=== PATIENT | female | born 1980 | race African-American/Black ===

== ENCOUNTER 2017-03-16 13:06 | Emergency (ER) | payer MEDICAID, OTHER ==
[~2017-03-16] VITALS: Ht 157.5 cm; Wt 96.2 kg
[~2017-03-16 13:06] MED LIST: MULT-1468 PO; PENI500T20 PO
[2017-03-16 14:11] VITALS: BP 147/99
--- NOTE | 2017-03-16 14:15 | NUR ---
PT AA&OX4 WITH EVEN AND STEADY GAIT AT THIS TIME; PT TO LOBBY AWAITING OPEN BED.
--- NOTE | 2017-03-16 17:32 | NUR ---
PATIENT CALLED FROM LOBBY AT THIS TIME FOR XRAY AND NO ANSWER PATIENT IS CONSIDERED LWBS.
== END 2017-03-16 17:32 | disposition left against medical advice (07) ==
LOC: MED 13:06
DX: R05 Cough (principal); Z53.21 Procedure and treatment not carried out due to patient leaving prior to being seen by health care provider

== ENCOUNTER 2017-03-17 12:03 | Emergency (ER) | payer OTHER ==
[~2017-03-17] VITALS: Ht 157.5 cm; Wt 96.2 kg
[2017-03-17 12:18] VITALS: BP 153/105
--- NOTE | 2017-03-17 14:39 | NUR ---
PT TAKEN TO OVERFLOW 1.
--- NOTE | 2017-03-17 15:19 | NUR ---
PATIENT PRESENTS TO ED FOR MEDICATION REFILL FOR ALBUTEROL INHALOR;HX OF ASTHMA . PT STATES SHE HAS COUGH. DENIES N/V/D; SKIN IS PINK/WARM/DRY; AAOX4 WITH EVEN AND STEADY GAIT; HR EVEN AND REGULAR; PT DENIES ANY FEVER, CP, SOB AT THIS TIME; PATIENT STATES PAIN OF 0/10 AT THIS TIME;PATIENT POSITIONED FOR COMFORT; ER MD MADE AWARE OF PT STATUS.
[2017-03-17 15:32] VITALS: BP 151/97
--- NOTE | 2017-03-17 15:32 | NUR ---
Patient discharged with v/s stable. Written and verbal after care instructions given and explained. Patient alert, oriented and verbalized understanding of instructions. Ambulatory with steady gait. All questions addressed prior to discharge. ID band removed. Patient advised to follow up with PMD. Rx of PREDNISONE AND ALBUTEROL given. Patient educated on indication of medication including possible reaction and side effects. Opportunity to ask questions provided and answered.
== END 2017-03-17 15:32 | disposition home or self-care (01) ==
LOC: MED 12:03
DX: J02.9 Acute pharyngitis, unspecified (principal); K21.9 Gastro-esophageal reflux disease without esophagitis; Z88.6 Allergy status to analgesic agent; Z88.0 Allergy status to penicillin
CPT/HCPCS: 99283

== ENCOUNTER 2018-04-30 21:18 | Emergency (ER) | payer MEDICAID ==
[~2018-04-30] VITALS: Ht 157.5 cm; Wt 81.6 kg
--- NOTE | 2018-04-30 21:24 | NUR ---
PT TAKEN TO BED 11
[2018-04-30 21:25] VITALS: BP 138/77
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
--- NOTE | 2018-04-30 22:09 | NUR ---
PT RETURN FROM RADIOLOGY
--- NOTE | 2018-04-30 22:40 | NUR ---
PT LAYING IN BED, RR EVEN AND UNLABORED. VSS. REPORTS IMPROVEMENT IN PAIN RELIEF. ALL NEEDS MET.
[2018-04-30 22:45] VITALS: BP 124/81
--- NOTE | 2018-04-30 22:45 | NUR ---
Patient discharged with v/s stable. Written and verbal after care instructions given and explained by Dr. Ulloa. Patient alert, oriented and verbalized understanding of instructions. Ambulatory with steady gait. All questions addressed prior to discharge by Dr. Ulloa. ID band removed. Patient advised to follow up with PMD. Rx of NAPROSYN given. Patient educated on indication of medication including possible reaction and side effects by Dr. Ulloa. Opportunity to ask questions provided and answered by Dr. Ulloa.
== END 2018-04-30 22:45 | disposition home or self-care (01) ==
LOC: MED 21:18
DX: S13.4XXA Sprain of ligaments of cervical spine, initial encounter (principal); J45.909 Unspecified asthma, uncomplicated; F12.90 Cannabis use, unspecified, uncomplicated; K21.9 Gastro-esophageal reflux disease without esophagitis; Z98.890 Other specified postprocedural states; Z88.6 Allergy status to analgesic agent; Z88.0 Allergy status to penicillin; Z88.8 Allergy status to other drugs, medicaments and biological substances; Z79.2 Long term (current) use of antibiotics; Z79.899 Other long term (current) drug therapy; V89.2XXA Person injured in unspecified motor-vehicle accident, traffic, initial encounter; Y93.89 Activity, other specified; Y92.89 Other specified places as the place of occurrence of the external cause; Y99.8 Other external cause status
CPT/HCPCS: 72050; 99283

== ENCOUNTER 2018-10-28 18:42 | Emergency (ER) | payer MEDICAID ==
[~2018-10-28] VITALS: Ht 157.5 cm; Wt 90.3 kg
[2018-10-28 18:58] VITALS: BP 125/76
--- NOTE | 2018-10-28 19:07 | NUR ---
PT IS REFUSING ACCUCHECK, SHE STATES SHE IS NOT DIABETIC AND DOES NOT WANT TO BE "POKED". I EXPLAINED TO PT I WOULD LIKE TO CHECK HER FSBS TO ENSURE HER GLUCOSE LEVELS ARE NORMAL TO R/O HYPOGLYCEMIA A REASON FOR THE FALL. PT CONTINUED TO REFUSE
--- NOTE | 2018-10-28 19:10 | NUR ---
Mary young in [facility] - 10/28/18 at 1910 by MEDKALLI PT AMBULATED TO BED 05.
--- NOTE | 2018-10-28 19:10 | NUR ---
PT AMBULATED TO BED 01.
[2018-10-28] MEDS ORDERED: NACL 0.9% 1,000 ML IV ONE (19:25)
[2018-10-28] MEDS ORDERED: ACETAMINOPHEN EXTRA STRENGTH 500 MG TAB PO ONE (19:30)
[2018-10-28 20:03] VITALS: BP 125/76
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
--- NOTE | 2018-10-28 21:15 | NUR ---
pT COMFORTABLE, WAITING FOR XRAY, WILL CONTINUE TO MONITER.
--- NOTE | 2018-10-28 21:29 | NUR ---
Patient discharged with v/s stable. Written and verbal after care instructions given and explained. Patient alert, oriented and verbalized understanding of instructions. Ambulatory with steady gait. All questions addressed prior to discharge. ID band removed. Patient advised to follow up with PMD. Rx of NAPROCYN given. Patient educated on indication of medication including possible reaction and side effects. Opportunity to ask questions provided and answered.
== END 2018-10-28 21:29 | disposition home or self-care (01) ==
LOC: MED 18:42
DX: S80.212A Abrasion, left knee, initial encounter (principal); J45.909 Unspecified asthma, uncomplicated; K21.9 Gastro-esophageal reflux disease without esophagitis; Z88.0 Allergy status to penicillin; Z88.6 Allergy status to analgesic agent; Z88.8 Allergy status to other drugs, medicaments and biological substances; X58.XXXA Exposure to other specified factors, initial encounter; Y93.89 Activity, other specified; Y92.89 Other specified places as the place of occurrence of the external cause; Y99.8 Other external cause status
CPT/HCPCS: 73562; 99283; Q0092

== ENCOUNTER 2018-11-30 18:30 | Emergency (ER) | payer MEDICAID ==
[~2018-11-30] VITALS: Ht 157.5 cm; Wt 83.9 kg
[2018-11-30 19:08] VITALS: BP_SYST 132; BP_SYST 139; BP_DIAS 76; BP_DIAS 88
--- NOTE | 2018-11-30 19:12 | NUR ---
[facility] AWAITING AVAILABLE BED.
--- NOTE | 2018-11-30 19:26 | NUR ---
PT AMBULATED TO CHAIR B.
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
--- NOTE | 2018-11-30 20:02 | NUR ---
SIZED CRUTCHES TO PATIENT
--- NOTE | 2018-11-30 20:03 | NUR ---
EMT PROVIDING CRUTCH TRAINING AT CHAIR.
[2018-11-30 20:07] VITALS: BP 139/76
--- NOTE | 2018-11-30 20:07 | NUR ---
Patient discharged with v/s stable. Written and verbal after care instructions given and explained. Patient alert, oriented and verbalized understanding of instructions. Ambulatory with steady gait. All questions addressed prior to discharge. ID band removed. Patient advised to follow up with PMD. Rx of Extra Strength Tylenol given. Patient educated on indication of medication including possible reaction and side effects. Opportunity to ask questions provided and answered.
== END 2018-11-30 20:07 | disposition home or self-care (01) ==
LOC: MED 18:30
DX: M25.561 Pain in right knee (principal); G89.29 Other chronic pain; J45.909 Unspecified asthma, uncomplicated; K21.9 Gastro-esophageal reflux disease without esophagitis; Z79.899 Other long term (current) drug therapy; Z79.2 Long term (current) use of antibiotics; Z88.6 Allergy status to analgesic agent; Z88.8 Allergy status to other drugs, medicaments and biological substances; Z88.0 Allergy status to penicillin
CPT/HCPCS: 99283

== ENCOUNTER 2019-03-08 12:01 | Emergency (ER) | payer MEDICAID ==
[~2019-03-08] VITALS: Ht 157.5 cm; Wt 93.4 kg
[2019-03-08 12:12] VITALS: BP 135/77
--- NOTE | 2019-03-08 12:15 | NUR ---
PT AMBULATED TO BED 1.
--- NOTE | 2019-03-08 12:29 | NUR ---
38/F presents to ED with complaints of right knee pain and right ankle pain which patient reports is chronic. Pt denies any injury or trauma. Pt reports having an 8/10 pain, aching, continuous. Pt has full ROM, cms intact. No signs of swelling or deformity. Pt ambulatory with steady gait.
[2019-03-08] MEDS ORDERED: HYDROcodone/APAP 5/325 MG 1 TAB TAB PO ONE (12:45)
--- NOTE | 2019-03-08 13:14 | NUR ---
REPORTS PAIN AT 5/10 AT THIS TIME. PT AGREES WITH PLAN TO DISCHARGE.
[2019-03-08 13:20] VITALS: BP 135/77
--- NOTE | 2019-03-08 13:20 | NUR ---
Patient discharged with v/s stable. Written and verbal after care instructions given and explained. Patient verbalized understanding. Ambulatory with steady gait. All questions addressed prior to discharge. Advised to follow up with PMD.
== END 2019-03-08 13:20 | disposition home or self-care (01) ==
LOC: MED 12:01
DX: M25.561 Pain in right knee (principal); M79.671 Pain in right foot; G89.29 Other chronic pain; J45.909 Unspecified asthma, uncomplicated; K21.9 Gastro-esophageal reflux disease without esophagitis; Z79.899 Other long term (current) drug therapy; Z88.0 Allergy status to penicillin; Z88.8 Allergy status to other drugs, medicaments and biological substances
CPT/HCPCS: 99282

== ENCOUNTER 2019-04-27 09:01 | Emergency (ER) | payer MEDICAID | END 2019-04-27 10:25 | disposition home or self-care (01) | LOC: MED 09:01 | DX: G89.29 Other chronic pain (principal); M25.571 Pain in right ankle and joints of right foot; M25.561 Pain in right knee; M54.2 Cervicalgia; J45.909 Unspecified asthma, uncomplicated; K21.9 Gastro-esophageal reflux disease without esophagitis; M51.06 Intervertebral disc disorders with myelopathy, lumbar region; Z88.0 Allergy status to penicillin; Z88.8 Allergy status to other drugs, medicaments and biological substances; Z88.6 Allergy status to analgesic agent | CPT/HCPCS: 99281 ==

== ENCOUNTER 2019-04-28 14:59 | Emergency (ER) | payer MEDICAID ==
[~2019-04-28] VITALS: Ht 157.5 cm; Wt 90.7 kg
[2019-04-28 15:05] VITALS: BP 130/73
--- NOTE | 2019-04-28 15:16 | NUR ---
PT C/O NECK PAIN SINCE YESTERDAY. DENIES TRAUMA/INJURY. TOOK NORCO AND TYLENOL W/O ANY RELIEF. PATIENT STATES PAIN OF 10/10 AT THIS TIME; VSS; PATIENT POSITIONED FOR COMFORT; HOB ELEVATED; BEDRAILS UP X1; BED DOWN. ER MD MADE AWARE OF PT STATUS.
[2019-04-28] MEDS: DEXAMETHASONE 4 MG/ML VIAL PO ONE (16:02)
[2019-04-28] MEDS: MORPHINE SULFATE 10 MG/ML VIAL IVP ONE (16:04)
[2019-04-28] MEDS: ONDANSETRON 4 MG/2 ML VIAL IVP ONE (16:06)
[2019-04-28] MEDS: NACL 0.9% 1,000 ML IV ONE (16:06)
--- NOTE | 2019-04-28 16:35 | NUR ---
PT AMBULATED TO THE BATHROOM W/ STEADY GAIT.
--- NOTE | 2019-04-28 16:50 | NUR ---
PT IS RESTING IN THE BED WITH VSS.
[2019-04-28 17:03] VITALS: BP 115/78
--- NOTE | 2019-04-28 17:03 | NUR ---
Patient discharged with v/s stable. Written and verbal after care instructions given and explained. Patient alert, oriented and verbalized understanding of instructions. Ambulatory with steady gait. All questions addressed prior to discharge. ID band removed. Patient advised to follow up with PMD. Rx of Grampian and Decadron given. Patient educated on indication of medication including possible reaction and side effects. Opportunity to ask questions provided and answered.
== END 2019-04-28 17:03 | disposition home or self-care (01) ==
LOC: MED 14:59
DX: G89.21 Chronic pain due to trauma (principal); M54.2 Cervicalgia; M79.602 Pain in left arm; J45.909 Unspecified asthma, uncomplicated; K21.9 Gastro-esophageal reflux disease without esophagitis; Z79.899 Other long term (current) drug therapy; Z88.0 Allergy status to penicillin; Z88.6 Allergy status to analgesic agent; Z88.8 Allergy status to other drugs, medicaments and biological substances; Z98.890 Other specified postprocedural states
CPT/HCPCS: 96374; 96375; 99284; J1100; J2270; J2405; J7030

== ENCOUNTER 2019-05-04 19:15 | Emergency (ER) | payer MEDICAID ==
[~2019-05-04] VITALS: Ht 160 cm; Wt 90.8 kg
[2019-05-04 19:29] VITALS: BP 137/83
--- NOTE | 2019-05-04 19:36 | NUR ---
URINE CUP HANDED PT FOR SAMPLE; PT STATED ONLY NEEDS PAIN MEDICINE SO NO NEED FOR URINE SAMPLE---I INFORMED PT THEY MAY ASK IF CT OR SOME OTHER SIMILAR DIAGNOSTIC NEEDED.
--- NOTE | 2019-05-04 19:41 | NUR ---
PT AMBULATED TO [facility]
--- NOTE | 2019-05-04 19:47 | NUR ---
38/F ambulatory with steady gait to ED, c/o exacerbation of chronic pain on posterior neck, R knee and R ankle. Pt stated that her 5-pill Rx [place] ran out and her appointment with MD is tomorrow. Denies trauma/fall/injury. Pt awake and alert, skin normal color warm and dry, rr even and unlabored. Hx asthma, chronic pain
[2019-05-04] MEDS ORDERED: HYDROcodone/APAP 5/325 MG 1 TAB TAB PO ONE (20:25)
[2019-05-04 21:14] VITALS: BP 137/83
--- NOTE | 2019-05-04 21:14 | NUR ---
Patient discharged with v/s stable. Written and verbal after care instructions given and explained. Patient alert, oriented and verbalized understanding of instructions. Ambulatory with . All questions addressed prior to discharge. ID band removed. Patient advised to follow up with PMD. Rx of TYLENOL WAS given. Patient educated on indication of medication including possible reaction and side effects. Opportunity to ask questions provided and answered.
== END 2019-05-04 20:20 | disposition home or self-care (01) ==
LOC: MED 19:15
DX: G89.29 Other chronic pain (principal); M54.2 Cervicalgia; M25.562 Pain in left knee; M25.561 Pain in right knee; J45.909 Unspecified asthma, uncomplicated; K21.9 Gastro-esophageal reflux disease without esophagitis; Z76.5 Malingerer [conscious simulation]; Z79.899 Other long term (current) drug therapy; Z88.0 Allergy status to penicillin; Z88.6 Allergy status to analgesic agent; Z88.8 Allergy status to other drugs, medicaments and biological substances
CPT/HCPCS: 99283

== ENCOUNTER 2019-08-13 17:15 | Emergency (ER) | payer MEDICAID ==
[~2019-08-13] VITALS: Ht 157.5 cm; Wt 87.1 kg
[2019-08-13 17:20] VITALS: BP 112/86
--- NOTE | 2019-08-13 17:25 | NUR ---
PT AMBULATED TO BED 11, STEADY GAIT.
--- NOTE | 2019-08-13 17:33 | NUR ---
OLGA DEL VALLE AT BEDSIDE.
--- NOTE | 2019-08-13 17:33 | NUR ---
38 Y/F PRESENTS TO ED C/O RT HIP PAIN RADIATING TO RT ANKLE WITH THROBBING AND TINGLING SENSATION FOR SO MANY YEARS PER PATIENT. DENIES TRAUMA TO LEG. PT REPORTS SHE RAN OUT OF PAIN MEDICATION AND HAS BEEN UNABLE TO SEE PAIN MANAGEMENT. +1 EDEMA ON RIGHT FOOT NOTICED UPON TRIAGE. PT AMBULATES WITH STEADY GAIT AND SINGLE POINT CANE ON RIGHT SIDE. PMH: ASTHMA, GERD MEDS: PAIN MEDS PT CANNOT RECALL THE NAMES
[2019-08-13 18:00] VITALS: BP 112/86
== END 2019-08-13 18:00 | disposition home or self-care (01) ==
LOC: MED 17:15
DX: G89.29 Other chronic pain (principal); M54.2 Cervicalgia; M25.561 Pain in right knee; M54.9 Dorsalgia, unspecified; J45.909 Unspecified asthma, uncomplicated; K21.9 Gastro-esophageal reflux disease without esophagitis; Z88.0 Allergy status to penicillin; Z88.8 Allergy status to other drugs, medicaments and biological substances; Z88.6 Allergy status to analgesic agent; Z79.899 Other long term (current) drug therapy
CPT/HCPCS: 99283

== ENCOUNTER 2019-08-25 18:16 | Emergency (ER) | payer MEDICAID ==
[~2019-08-25] VITALS: Ht 157.5 cm; Wt 90.3 kg
[2019-08-25 18:21] VITALS: BP 136/87
--- NOTE | 2019-08-25 19:33 | NUR ---
38 Y/O FEMALE C/O FLARE UP OF RIGHT SIDED CHRONIC PAIN X 4 DAYS NOW . PT STATES RIGHT HIP/KNEE/ANKLE/LEG/TOES HURT WITH PAIN 10/10 AND PT DESCRIBES PAIN SHARP. PT TOOK MUSCLE RELAXER EARILER TODAY BUT UNSURE OF THE TIME. DENIES N/V/D; SKIN IS PINK/WARM/DRY; AAOX4 WITH EVEN AND STEADY GAIT; HR EVEN AND REGULAR; PT DENIES ANY FEVER, CP, SOB, OR COUGH AT THIS TIME; VSS; PATIENT POSITIONED FOR COMFORT; HOB ELEVATED; BEDRAILS UP X1; BED DOWN AND LOCKED. PMH: ASTHMA/GERD/CHRONIC PAIN ALLERGIES: IBUPROFEN/PCN/RANITIDINE
--- NOTE | 2019-08-25 20:25 | NUR ---
AT BEDSIDE EXAMINING PT
[2019-08-25] MEDS ORDERED: MORPHINE SULFATE 4 MG/ML SYR IM ONE (20:30)
[2019-08-25 20:39] VITALS: BP 136/87
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
== END 2019-08-25 20:39 | disposition home or self-care (01) ==
LOC: MED 18:16
DX: G89.29 Other chronic pain (principal); J45.909 Unspecified asthma, uncomplicated; K21.9 Gastro-esophageal reflux disease without esophagitis; Z88.0 Allergy status to penicillin; Z88.6 Allergy status to analgesic agent; Z88.3 Allergy status to other anti-infective agents; Z98.890 Other specified postprocedural states; Z79.899 Other long term (current) drug therapy
CPT/HCPCS: 96372; 99283; J2270

== ENCOUNTER 2019-11-27 15:42 | Emergency (ER) | payer MEDICAID ==
[~2019-11-27] VITALS: Ht 157.5 cm; Wt 88.5 kg
[2019-11-27 15:49] VITALS: BP 127/79
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
--- NOTE | 2019-11-27 16:08 | NUR ---
OLGA Navarro at bedside examining pt
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
[2019-11-27] MEDS ORDERED: BACITRACIN OINT 500 UNITS/GM PKT TP ONE (16:15)
--- NOTE | 2019-11-27 16:24 | NUR ---
Bacitracin applied to right pinky.
--- NOTE | 2019-11-27 16:29 | NUR ---
Xray at bedside
--- NOTE | 2019-11-27 17:07 | NUR ---
[place] [employer] officer at bedside speaking to patient
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
[2019-11-27 18:49] VITALS: BP 127/79
--- NOTE | 2019-11-27 18:49 | NUR ---
Patient discharged with v/s stable. Written and verbal after care instructions given and explained. Patient alert, oriented and verbalized understanding of instructions. Ambulatory with steady gait. All questions addressed prior to discharge. ID band removed. Patient advised to follow up with PMD. Rx of Bactrim 800mg and Clindamycin Hydrochloride 300mg given. Patient educated on indication of medication including possible reaction and side effects. Opportunity to ask questions provided and answered.
== END 2019-11-27 18:49 | disposition home or self-care (01) ==
LOC: MED 15:42
DX: S00.10XA Contusion of unspecified eyelid and periocular area, initial encounter (principal); M79.644 Pain in right finger(s); J45.909 Unspecified asthma, uncomplicated; K21.9 Gastro-esophageal reflux disease without esophagitis; Z88.0 Allergy status to penicillin; Z88.6 Allergy status to analgesic agent; Z88.8 Allergy status to other drugs, medicaments and biological substances; Y08.89XA Assault by other specified means, initial encounter; Y93.89 Activity, other specified; Y92.89 Other specified places as the place of occurrence of the external cause; Y99.8 Other external cause status
CPT/HCPCS: 73140; 90471; 90715; 99283; Q0092

== ENCOUNTER 2019-12-19 19:17 | Emergency (ER) | payer MEDICAID ==
[~2019-12-19] VITALS: Ht 157.5 cm; Wt 92.1 kg
[2019-12-19 19:49] VITALS: BP 161/101
[2019-12-19] MEDS ORDERED: MORPHINE SULFATE 2 MG/ML SYR IM ONE (20:25)
[2019-12-19 21:00] VITALS: BP 161/101
== END 2019-12-19 21:00 | disposition home or self-care (01) ==
LOC: MED 19:17
DX: G89.29 Other chronic pain (principal); R03.0 Elevated blood-pressure reading, without diagnosis of hypertension; M54.2 Cervicalgia; M54.6 Pain in thoracic spine; M25.551 Pain in right hip; J45.909 Unspecified asthma, uncomplicated; K21.9 Gastro-esophageal reflux disease without esophagitis; Z88.6 Allergy status to analgesic agent; Z88.0 Allergy status to penicillin; Z88.8 Allergy status to other drugs, medicaments and biological substances; Z79.899 Other long term (current) drug therapy
CPT/HCPCS: 96372; 99283; J2270

== ENCOUNTER 2019-12-28 12:47 | Emergency (ER) | payer MEDICAID ==
[~2019-12-28] VITALS: Ht 157.5 cm; Wt 92.1 kg
[2019-12-28 13:00] VITALS: BP 124/74
[2019-12-28 14:06] VITALS: BP 120/75
== END 2019-12-28 14:07 | disposition home or self-care (01) ==
LOC: MED 12:47
DX: S70.362A Insect bite (nonvenomous), left thigh, initial encounter (principal); J45.909 Unspecified asthma, uncomplicated; K21.9 Gastro-esophageal reflux disease without esophagitis; Z88.6 Allergy status to analgesic agent; Z88.8 Allergy status to other drugs, medicaments and biological substances; Z88.0 Allergy status to penicillin; Z79.899 Other long term (current) drug therapy; W57.XXXA Bitten or stung by nonvenomous insect and other nonvenomous arthropods, initial encounter; Y93.89 Activity, other specified; Y92.89 Other specified places as the place of occurrence of the external cause; Y99.8 Other external cause status
CPT/HCPCS: 99282

== ENCOUNTER 2020-11-09 17:43 | Emergency (ER) | payer MEDICAID ==
[~2020-11-09] VITALS: Ht 165.1 cm; Wt 90.7 kg
[2020-11-09 18:03] VITALS: BP 165/92
[2020-11-09] MEDS ORDERED: ACET-8386 PO (19:58)
[2020-11-09] MEDS ORDERED: CYCL-711 PO (19:59)
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
[2020-11-09] MEDS: MORPHINE SULFATE 2 MG/ML SYR IM ONE (20:20)
[2020-11-09] MEDS: ACETAMINOPHEN EXTRA STRENGTH 500 MG TAB PO ONE (20:21)
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
== END 2020-11-09 20:35 | disposition home or self-care (01) ==
LOC: MED 17:43
DX: G89.29 Other chronic pain (principal); M79.604 Pain in right leg; M79.605 Pain in left leg; R60.0 Localized edema; J45.909 Unspecified asthma, uncomplicated; K21.9 Gastro-esophageal reflux disease without esophagitis; Z88.8 Allergy status to other drugs, medicaments and biological substances; Z88.0 Allergy status to penicillin; Z88.6 Allergy status to analgesic agent
CPT/HCPCS: 96372; 99283; J2270

== ENCOUNTER 2021-01-24 20:42 | Emergency (ER) | payer MEDICAID ==
[~2021-01-24] VITALS: Ht 157.5 cm; Wt 101.7 kg
[~2021-01-24 20:42] MED LIST changes: +ACET-8386 PO
[2021-01-24 21:27] VITALS: BP 143/99
--- NOTE | 2021-01-24 21:36 | NUR ---
pt ambulated to lobby using 1 crutch.
--- NOTE | 2021-01-24 22:25 | NUR ---
PT AMBULATED TO BED 1
--- NOTE | 2021-01-24 22:49 | NUR ---
Dr. Valdez examining patient.
[2021-01-24] MEDS ORDERED: PERM5CRE3 TP (23:18)
[2021-01-24 23:49] VITALS: BP 143/99
--- NOTE | 2021-01-24 23:49 | NUR ---
Patient discharged with v/s stable. Written and verbal after care instructions given and explained. Patient alert, oriented and verbalized understanding of instructions. Ambulatory with steady gait. All questions addressed prior to discharge. ID band removed. Patient advised to follow up with PMD. Rx of premetherin given. Patient educated on indication of medication including possible reaction and side effects. Opportunity to ask questions provided and answered.
--- NOTE | 2021-01-24 23:54 | NUR ---
seen by carla no nursing interventions needed for patient
== END 2021-01-24 23:49 | disposition home or self-care (01) ==
LOC: MED 20:42
DX: R21 Rash and other nonspecific skin eruption (principal); L29.9 Pruritus, unspecified; J45.909 Unspecified asthma, uncomplicated; K21.9 Gastro-esophageal reflux disease without esophagitis; Z79.899 Other long term (current) drug therapy; Z88.0 Allergy status to penicillin; Z88.6 Allergy status to analgesic agent; Z88.8 Allergy status to other drugs, medicaments and biological substances
CPT/HCPCS: 99282

== ENCOUNTER 2021-01-26 03:33 | Emergency (ER) | payer MEDICAID ==
[~2021-01-26] VITALS: Ht 167.6 cm; Wt 81.6 kg
[~2021-01-26 03:33] MED LIST changes: +PERM5CRE3 TP
[2021-01-26 03:43] VITALS: BP 134/78
--- NOTE | 2021-01-26 04:03 | NUR ---
DR IBARRA EXAMINING PT
[2021-01-26 04:25] VITALS: BP 134/78
--- NOTE | 2021-01-26 04:25 | NUR ---
ER MD EXAMINED AND DISCHARGED. NO NURSING INTERVENTION REQUIRED
== END 2021-01-26 04:25 | disposition home or self-care (01) ==
LOC: MED 03:33
DX: B85.0 Pediculosis due to Pediculus humanus capitis (principal); J45.909 Unspecified asthma, uncomplicated; K21.9 Gastro-esophageal reflux disease without esophagitis; Z79.899 Other long term (current) drug therapy; Z79.891 Long term (current) use of opiate analgesic; Z79.2 Long term (current) use of antibiotics; Z88.6 Allergy status to analgesic agent; Z88.8 Allergy status to other drugs, medicaments and biological substances; Z88.0 Allergy status to penicillin
CPT/HCPCS: 99281; 99282

== ENCOUNTER 2021-03-01 19:21 | Emergency (ER) | payer MEDICAID ==
[~2021-03-01] VITALS: Ht 157.5 cm; Wt 97.5 kg
[2021-03-01 19:35] VITALS: BP 131/73
--- NOTE | 2021-03-01 19:38 | NUR ---
to lobby a/w bed ambulatory
--- NOTE | 2021-03-01 20:26 | NUR ---
PT TAKEN TO ER BED 11
--- NOTE | 2021-03-01 20:45 | NUR ---
RECEIVED IN BED 11 WITH C/O CHRONIC PAIN WITH INCREASED NECK PAIN AT THIS TIME. GUARDED ROM IS NOTED
[2021-03-01] MEDS: MORPHINE SULFATE 4 MG/ML SYR IM ONE (21:32)
[2021-03-01] MEDS: diazePAM 5 MG TAB PO ONE (21:33)
[2021-03-01 22:30] VITALS: BP 131/73
== END 2021-03-01 22:30 | disposition home or self-care (01) ==
LOC: MED 19:21
DX: S16.1XXA Strain of muscle, fascia and tendon at neck level, initial encounter (principal); J45.909 Unspecified asthma, uncomplicated; K21.9 Gastro-esophageal reflux disease without esophagitis; Z88.0 Allergy status to penicillin; Z88.6 Allergy status to analgesic agent; Z88.8 Allergy status to other drugs, medicaments and biological substances; Z79.899 Other long term (current) drug therapy; V49.9XXA Car occupant (driver) (passenger) injured in unspecified traffic accident, initial encounter; Y93.89 Activity, other specified; Y92.89 Other specified places as the place of occurrence of the external cause; Y99.8 Other external cause status
CPT/HCPCS: 96372; 99283; J2270

== ENCOUNTER 2021-03-06 14:27 | Emergency (ER) | payer MEDICAID ==
[~2021-03-06] VITALS: Ht 157.5 cm; Wt 98.9 kg
[2021-03-06 14:56] VITALS: BP 129/72
[2021-03-06] MEDS ORDERED: CYCL-711 PO (15:29)
[2021-03-06] MEDS ORDERED: ACET-8386 PO (15:29)
[2021-03-06 15:50] VITALS: BP 122/70
== END 2021-03-06 15:50 | disposition home or self-care (01) ==
LOC: MED 14:27
DX: G89.29 Other chronic pain (principal); M54.2 Cervicalgia; J45.909 Unspecified asthma, uncomplicated; K21.9 Gastro-esophageal reflux disease without esophagitis; Z88.6 Allergy status to analgesic agent; Z88.8 Allergy status to other drugs, medicaments and biological substances
CPT/HCPCS: 99281

== ENCOUNTER 2021-03-20 18:33 | Emergency (ER) | payer MEDICAID ==
[~2021-03-20 18:33] MED LIST changes: +CYCL-711 PO
--- NOTE | 2021-03-20 19:00 | NUR ---
No answer [id number]
--- NOTE | 2021-03-20 19:23 | NUR ---
No answer x 2
--- NOTE | 2021-03-20 19:41 | NUR ---
PATIENT LEFT WITHOUT BEING SEEN BY DR. Burgess. NO FURTHER CARE PROVIDED FOR PATIENT.
== END 2021-03-20 19:00 | disposition left against medical advice (07) ==
LOC: MED 18:33
DX: G89.29 Other chronic pain (principal); Z53.21 Procedure and treatment not carried out due to patient leaving prior to being seen by health care provider

== ENCOUNTER 2021-03-29 02:43 | Emergency (ER) | payer MEDICAID ==
[~2021-03-29] VITALS: Ht 157.5 cm; Wt 98.0 kg
[2021-03-29] MEDS ORDERED: CYCLOBENZAPRINE 10 MG TAB PO ONE (03:25)
[2021-03-29] MEDS ORDERED: ACETAMINOPHEN EXTRA STRENGTH 500 MG TAB PO ONE (03:25)
[2021-03-29 03:35] VITALS: BP 136/91
--- NOTE | 2021-03-29 03:55 | NUR ---
PT REFUSED PO MEDICATION. ASKED FOR URINE SAMPLE FOR A TEST FOR MEDICATION, PT STATED SHE HAD ONE DONE ALREADY AT [facility]. STATED WE NEED A NEGATIVE AT THIS FACILITY. PT BACK IN LOBBY WITH WATER AND URINE CUP.
[2021-03-29] MEDS ORDERED: KETOROLAC 15 MG/ML VIAL IM ONE (04:00)
--- NOTE | 2021-03-29 04:10 | NUR ---
PT IS CRYING AND YELLING LOUDLY. SECURITY CALLED.
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
--- NOTE | 2021-03-29 04:25 | NUR ---
PT OFFERED TORADOL IM PER ERMD ORDERS.
--- NOTE | 2021-03-29 04:55 | NUR ---
PT ASKED FOR UPDATED PAPERWORK. PAPERWORK UPDATED AND GIVEN TO PT.
[2021-03-29 05:05] VITALS: BP 136/91
--- NOTE | 2021-03-29 05:05 | NUR ---
SECURITY ESCORTED PT OUT OF LOBBY.
== END 2021-03-29 05:05 | disposition home or self-care (01) ==
LOC: MED 02:43
DX: G89.29 Other chronic pain (principal); J45.909 Unspecified asthma, uncomplicated; K21.9 Gastro-esophageal reflux disease without esophagitis; Z79.899 Other long term (current) drug therapy; Z88.0 Allergy status to penicillin; Z88.6 Allergy status to analgesic agent; Z88.8 Allergy status to other drugs, medicaments and biological substances
CPT/HCPCS: 96372; 99283; J1885

== ENCOUNTER 2021-04-14 20:10 | Emergency (ER) | payer MEDICAID ==
[~2021-04-14] VITALS: Ht 157.5 cm; Wt 93.4 kg
[2021-04-14 20:18] VITALS: BP 122/55
--- NOTE | 2021-04-14 20:21 | NUR ---
PT IN LOBBY.
[2021-04-14] MEDS ORDERED: CYCL-711 PO ×2 (20:37→20:47)
[2021-04-14 20:51] VITALS: BP 122/55
--- NOTE | 2021-04-14 20:51 | NUR ---
Patient discharged with v/s stable. Written and verbal after care instructions given and explained. Patient alert, oriented and verbalized understanding of instructions. Ambulatory with steady gait. All questions addressed prior to discharge. ID band removed. Patient advised to follow up with PMD. Rx of FLEXERIL given. Patient educated on indication of medication including possible reaction and side effects. Opportunity to ask questions provided and answered.
== END 2021-04-14 20:51 | disposition home or self-care (01) ==
LOC: MED 20:10
DX: G89.29 Other chronic pain (principal); M54.2 Cervicalgia
CPT/HCPCS: 99283

== ENCOUNTER 2021-05-23 19:26 | Emergency (ER) | payer MEDICAID ==
[~2021-05-23] VITALS: Ht 157.5 cm; Wt 92.5 kg
[2021-05-23 19:35] VITALS: BP 115/80
--- NOTE | 2021-05-23 19:38 | NUR ---
TO LOBBY A/W BED VIA W/C
--- NOTE | 2021-05-23 20:08 | NUR ---
PT TAKEN TO BED 07 VIA W/C.
[2021-05-23] MEDS ORDERED: ACET-8386 PO (20:26)
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
[2021-05-23 21:03] VITALS: BP 120/85
--- NOTE | 2021-05-23 21:03 | NUR ---
Patient discharged with v/s stable. Written and verbal after care instructions given and explained. Patient alert, oriented and verbalized understanding of instructions. Wheel Chair Assisted with to car. All questions addressed prior to discharge. ID band removed. Patient advised to follow up with PMD. Rx of HYDROVODON-ACETAMETAPIN 5-325 given. Opportunity to ask questions provided and answered.
== END 2021-05-23 21:03 | disposition home or self-care (01) ==
LOC: MED 19:26
DX: M79.671 Pain in right foot (principal); R20.0 Anesthesia of skin; J45.909 Unspecified asthma, uncomplicated; K21.9 Gastro-esophageal reflux disease without esophagitis; Z98.890 Other specified postprocedural states; Z79.899 Other long term (current) drug therapy; Z88.0 Allergy status to penicillin; Z88.6 Allergy status to analgesic agent; Z88.8 Allergy status to other drugs, medicaments and biological substances
CPT/HCPCS: 73630; 99283

== ENCOUNTER 2021-07-29 03:52 | Emergency (ER) | payer MEDICAID ==
[~2021-07-29] VITALS: Ht 157.5 cm; Wt 90.7 kg
[2021-07-29 03:54] VITALS: BP 134/68
[2021-07-29] MEDS ORDERED: ACETAMINOPHEN EXTRA STRENGTH 500 MG TAB PO ONE (04:05)
--- NOTE | 2021-07-29 04:05 | NUR ---
X-Ray at bedside.
--- NOTE | 2021-07-29 04:14 | NUR ---
ER AT BEDSIDE
--- NOTE | 2021-07-29 04:14 | NUR ---
Mary young in [facility] - 07/29/21 at [address] Valdez examining patient.
[2021-07-29 04:43] VITALS: BP 134/68
--- NOTE | 2021-07-29 04:58 | NUR ---
The patient's care was reviewed and supervised by Deann Bishop RN. Chart checked
== END 2021-07-29 04:43 | disposition home or self-care (01) ==
LOC: MED 03:52
DX: M79.671 Pain in right foot (principal); J45.909 Unspecified asthma, uncomplicated; K21.9 Gastro-esophageal reflux disease without esophagitis; Z88.6 Allergy status to analgesic agent; Z88.0 Allergy status to penicillin; Z88.8 Allergy status to other drugs, medicaments and biological substances
CPT/HCPCS: 73630; 99283

== ENCOUNTER 2021-11-18 07:20 | Emergency (ER) | payer MEDICAID ==
[~2021-11-18] VITALS: Ht 157.5 cm; Wt 104.3 kg
[2021-11-18 07:34] VITALS: BP 131/88
--- NOTE | 2021-11-18 08:05 | NUR ---
Dr. Burgess evaluating patient at bedside.
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
--- NOTE | 2021-11-18 08:21 | NUR ---
PT STATING THAT SHE WANTS TO LEAVE, DR TESFAYE MADE AWARE
--- NOTE | 2021-11-18 08:25 | NUR ---
PATIENT ELOPED FROM FACILITY. DISCHARGE INSTRUCTIONS NOT GIVEN TO PATIENT. NOTIFIED.
--- NOTE | 2021-11-18 08:26 | NUR ---
Chart checked and completed. The patient's care was reviewed and supervised by Imani Loya RN.
[2021-11-18] MEDS ORDERED: CYCL-711 PO (22:28)
== END 2021-11-18 08:25 | disposition left against medical advice (07) ==
LOC: MED 07:20
DX: M54.50 Low back pain, unspecified (principal); R51.9 Headache, unspecified; M79.18 Myalgia, other site; J45.909 Unspecified asthma, uncomplicated; K21.9 Gastro-esophageal reflux disease without esophagitis; Z79.891 Long term (current) use of opiate analgesic; Z79.899 Other long term (current) drug therapy; Z79.2 Long term (current) use of antibiotics; Z88.6 Allergy status to analgesic agent; Z88.8 Allergy status to other drugs, medicaments and biological substances; Z88.0 Allergy status to penicillin
CPT/HCPCS: 99281

== ENCOUNTER 2021-11-18 19:31 | Emergency (ER) | payer MEDICAID ==
[~2021-11-18] VITALS: Ht 157.5 cm; Wt 104.3 kg
[2021-11-18 20:06] VITALS: BP 106/68
--- NOTE | 2021-11-18 20:11 | NUR ---
PATIENT TO THE LOBBY
[2021-11-18] MEDS ORDERED: CYCL-711 PO (22:28)
[2021-11-18] MEDS ORDERED: CYCLOBENZAPRINE 10 MG TAB PO ONE (22:30)
[2021-11-18] MEDS ORDERED: ACETAMINOPHEN EXTRA STRENGTH 500 MG TAB PO ONE (22:30)
--- NOTE | 2021-11-18 23:30 | NUR ---
Pain reduced to "0/10" per patient stated.
--- NOTE | 2021-11-18 23:30 | NUR ---
Patient discharged with v/s stable. Written and verbal after care instructions given and explained. Patient alert, oriented and verbalized understanding of instructions. Wheel Chair Assisted with to car. All questions addressed prior to discharge. ID band removed. Patient advised to follow up with PMD. Rx of given. Patient educated on indication of medication including possible reaction and side effects. Opportunity to ask questions provided and answered. Addendum: 11/18/21 at 2357 by [email or web address] Patient discharged with v/s stable. Written and verbal after care instructions given and explained. Patient alert, oriented and verbalized understanding of instructions. Patient waiting for transportation supervisor to talk to patient to set up transportation. All questions addressed prior to discharge. ID band removed. Patient advised to follow up with PMD. Rx of given. Patient educated on indication of medication including possible reaction and side effects. Opportunity to ask questions provided and answered.
--- NOTE | 2021-11-18 23:52 | NUR ---
supervisor [employer] speaking to patient about transportation.
[2021-11-18 23:53] VITALS: BP 127/85
--- NOTE | 2021-11-19 00:16 | NUR ---
Report given to Linda pillaistonework supervisor Sowmya Fam RN about patient care while patient in hospital. Linda pillaistonework supervisor Sowmya Fam RN verbalized understanding, no further questions. show design supervisor Greg stated, "transportation is on the way to take patient back to [facility]." Addendum: 11/19/21 at 0020 by [email or web address] Report given to Linda pillaistonework supervisor Sowmya Fam RN about patient care while patient in hospital. Linda pillaistonework supervisor Sowmya Fam RN verbalized understanding, no further questions. show design supervisor Greg stated, "transportation is on the way to take patient back to [facility]."
== END 2021-11-18 23:57 | disposition home or self-care (01) ==
LOC: MED 19:31
DX: G89.29 Other chronic pain (principal); R51.9 Headache, unspecified; M54.50 Low back pain, unspecified; J45.909 Unspecified asthma, uncomplicated; K21.9 Gastro-esophageal reflux disease without esophagitis; Z88.0 Allergy status to penicillin; Z88.6 Allergy status to analgesic agent; Z88.8 Allergy status to other drugs, medicaments and biological substances; Z79.899 Other long term (current) drug therapy
CPT/HCPCS: 99283

== ENCOUNTER 2021-11-30 14:07 | Emergency (ER) | payer MEDICAID ==
[~2021-11-30] VITALS: Ht 157.5 cm; Wt 81.6 kg
[2021-11-30 14:12] VITALS: BP 122/95
--- NOTE | 2021-11-30 15:15 | NUR ---
PATIENT ELOPED FROM FACILITY. DISCHARGE INSTRUCTIONS NOT GIVEN TO PATIENT. OLGA DEL VALLE NOTIFIED.
[2021-11-30] MEDS ORDERED: ACET-10509 PO (18:04)
== END 2021-11-30 15:16 | disposition left against medical advice (07) ==
LOC: MED 14:07
DX: G89.4 Chronic pain syndrome (principal); K21.9 Gastro-esophageal reflux disease without esophagitis; J45.909 Unspecified asthma, uncomplicated; Z76.0 Encounter for issue of repeat prescription; Z88.0 Allergy status to penicillin; Z88.6 Allergy status to analgesic agent; Z88.8 Allergy status to other drugs, medicaments and biological substances
CPT/HCPCS: 99281

== ENCOUNTER 2021-11-30 15:46 | Emergency (ER) | payer MEDICAID ==
[~2021-11-30] VITALS: Ht 157.5 cm; Wt 97.5 kg
[2021-11-30 16:54] VITALS: BP_SYST 129; BP_SYST 133; BP_DIAS 106; BP_DIAS 96
--- NOTE | 2021-11-30 16:56 | NUR ---
DR. MEHTA EVALUATING PATIENT IN TRIAGE
[2021-11-30] MEDS ORDERED: diphenhydrAMINE 50 MG/ML VIAL IM ONE (17:00)
[2021-11-30] MEDS ORDERED: PROCHLORPERAZINE 10 MG/2 ML VIAL IM ONE (17:00)
[2021-11-30] MEDS ORDERED: ACET-10509 PO (18:04)
[2021-11-30] MEDS ORDERED: ACETAMINOPHEN EXTRA STRENGTH 500 MG TAB PO ONE (18:05)
[2021-11-30] MEDS ORDERED: ACETAMINOPHEN EXTRA STRENGTH 500 MG TAB ONE (19:15)
--- NOTE | 2021-11-30 19:16 | NUR ---
Pt report given to MATT KIRKLAND. Transfer of care at this time.
[2021-11-30 19:35] VITALS: BP 129/96
--- NOTE | 2021-11-30 19:35 | NUR ---
Patient discharged with v/s stable. Written and verbal after care instructions given and explained. Patient alert, oriented and verbalized understanding of instructions. Wheel Chair Assisted with to home. All questions addressed prior to discharge. ID band removed. Patient advised to follow up with PMD. Rx of EXTRA STRENGTH TYLENOL given. Patient educated on indication of medication including possible reaction and side effects. Opportunity to ask questions provided and answered.
== END 2021-11-30 19:35 | disposition home or self-care (01) ==
LOC: MED 15:46
DX: F41.9 Anxiety disorder, unspecified (principal); G43.909 Migraine, unspecified, not intractable, without status migrainosus; I10 Essential (primary) hypertension; E11.9 Type 2 diabetes mellitus without complications; J45.909 Unspecified asthma, uncomplicated; K21.9 Gastro-esophageal reflux disease without esophagitis; Z79.4 Long term (current) use of insulin; Z79.899 Other long term (current) drug therapy; Z88.6 Allergy status to analgesic agent; Z88.0 Allergy status to penicillin; Z88.8 Allergy status to other drugs, medicaments and biological substances
CPT/HCPCS: 96372; 99284; J0780; J1200

== ENCOUNTER 2022-12-30 12:52 | Emergency (ER) | payer MEDICAID ==
[~2022-12-30] VITALS: Ht 157.5 cm; Wt 86.2 kg
[~2022-12-30 12:52] MED LIST changes: +ACET-10509 PO; -ACET-8386 PO; +ACET-8905 PO
[2022-12-30 13:25] VITALS: BP 147/73; PULSE 96; RESP 18; TEMP 97.2; O2SAT 98
[2022-12-30] MEDS ORDERED: COROTSOL RIGHT EAR ×2 (15:33→15:59)
[2022-12-30] MEDS ORDERED: LORA10TA19 PO ×2 (15:33→15:59)
[2022-12-30 15:53] VITALS: BP 147/73; PULSE 96; RESP 18; TEMP 97.2; O2SAT 98
== END 2022-12-30 15:53 | disposition home or self-care (01) ==
LOC: MED 12:52
DX: H92.02 Otalgia, left ear (principal); J45.909 Unspecified asthma, uncomplicated; K21.9 Gastro-esophageal reflux disease without esophagitis; Z79.899 Other long term (current) drug therapy; Z79.2 Long term (current) use of antibiotics; Z88.6 Allergy status to analgesic agent; Z88.8 Allergy status to other drugs, medicaments and biological substances; Z88.0 Allergy status to penicillin
CPT/HCPCS: 99283

== ENCOUNTER 2022-12-31 19:39 | Emergency (ER) | payer MEDICAID ==
[~2022-12-31] VITALS: Ht 160 cm; Wt 86.2 kg
[~2022-12-31 19:39] MED LIST changes: +COROTSOL RIGHT EAR; +LORA10TA19 PO
[2022-12-31 19:55] VITALS: BP 143/92; PULSE 85; RESP 16; TEMP 98.5; O2SAT 98
== END 2022-12-31 21:22 | disposition left against medical advice (07) ==
LOC: MED 19:39
DX: G43.909 Migraine, unspecified, not intractable, without status migrainosus (principal); Z53.21 Procedure and treatment not carried out due to patient leaving prior to being seen by health care provider
CPT/HCPCS: 99281